=== PATIENT | female | born 1970 | race Caucasian/White ===

== ENCOUNTER 2022-08-30 03:55 | Day surgery (SDC) | payer OTHER ==
[2022-08-25 15:08] VITALS: BMI 25.8
[2022-08-30 06:26] VITALS: RESP 18
[2022-08-30] MEDS ORDERED: PROPOFOL 20 ML ONE ×2 (07:49→08:51)
[2022-08-30] MEDS ORDERED: MIDAZOLAM HCL 2 MG/2 ML SINGLE DOSE VIAL ONE (07:49)
[2022-08-30] MEDS ORDERED: BUPIVACAINE HCL/PF 0.5% (5MG/ML) 10 ML VIAL ONE (07:56)
[2022-08-30] MEDS ORDERED: DEXAMETHASONE SOD PHOSPHATE 10 MG/1 ML VIAL ONE (07:56)
[2022-08-30] MEDS ORDERED: ceFAZolin SODIUM 1 GM VIAL ONE (08:23)
[2022-08-30] MEDS ORDERED: ceFAZolin 2 GRAM PREMIX BAG IVPB ONE (08:34)
[2022-08-30] MEDS ORDERED: ONDANSETRON 4 MG/2 ML VIAL ONE (08:49)
[2022-08-30] MEDS ORDERED: DEXAMETHASONE SOD PHOSPHATE 4 MG/1 ML VIAL ONE (08:49)
[2022-08-30 11:07] VITALS: BP 122/75; PULSE 75; TEMP 97.7
== END 2022-08-30 11:35 | disposition home or self-care (01) ==
LOC: JASU-SURG 03:55
PROVIDERS: ATTEND Orthopaedic Surgery
PROC: 0LQ30ZZ Repair Right Upper Arm Tendon, Open Approach (ICD-10-PCS; 2022-08-30)
PROC: 0PBF0ZZ Excision of Right Humeral Shaft, Open Approach (ICD-10-PCS; principal; 2022-08-30 08:00)
DX: M77.11 Lateral epicondylitis, right elbow (principal)
CPT/HCPCS: 81025; 88304-TC; J1100